=== PATIENT | female | born 2000 | race Caucasian/White ===

== ENCOUNTER 2021-11-10 00:49 | Inpatient (IN) ==
[2021-11-10] MEDS ORDERED: BUTORPHANOL 2 MG/ML VIAL IV PRN (01:17)
[2021-11-10] MEDS ORDERED: MEPERIDINE 50 MG/1 ML VIAL IV PRN ×2 (01:17→01:24)
[2021-11-10] MEDS ORDERED: ONDANSETRON 4 MG/2 ML VIAL IV PRN ×2 (01:17→16:30)
[2021-11-10] MEDS ORDERED: LACTATED RINGERS 500 ML IV PRN (01:17)
[2021-11-10] MEDS ORDERED: diphenhydrAMINE 50 MG/1 ML VIAL IV PRN ×2 (01:21)
[2021-11-10] MEDS ORDERED: ePHEDrine 50 MG/ML VIAL IV PRN (01:21)
[2021-11-10] MEDS ORDERED: hydrOXYzine HCL 25 MG/1 ML VIAL IM PRN (01:21)
[2021-11-10] MEDS ORDERED: NALOXONE 0.4 MG/ML VIAL IV PRN (01:21)
[2021-11-10] MEDS ORDERED: FAMOTIDINE 20 MG/2 ML VIAL IV ONE (01:21)
[2021-11-10] MEDS ORDERED: ONDANSETRON 4 MG/2 ML VIAL IV ONE (01:21)
[2021-11-10] MEDS ORDERED: PROMETHAZINE 25 MG/1 ML VIAL IM ONE (01:21)
[2021-11-10] MEDS ORDERED: CITRIC ACID/SODIUM CITRATE 30 ML UDCUP PO ONE (01:21)
[2021-11-10] MEDS ORDERED: OXYTOCIN/LR 20 UNIT/1,000 ML BAG IV SCH ×2 (01:30→04:00)
[2021-11-10 01:48] LABS: Basophils # 0.1 10*3/uL (0.0-0.2); Basophils % 0.4 % (0.0-0.8); Eosinophils # 0.3 10*3/uL (0.0-0.87); Eosinophils % 2.2 % (0.00-10.9); Hematocrit 31.4 VOL% (35.7-47.0); Hemoglobin 10.1 GM/DL (12.0-16.0); Immature Granulocytes % 0.9 %; Immature Granulocytes Absolute 0.13 #; Lymphocytes # 3.7 10*3/uL (1.4-4.0); Lymphocytes % 25.9 % (21.3-54.2); Mean Corpuscular HGB Conc 32.2 GM/DL (32-36); Mean Corpuscular Volume 85.1 FL (87-102); Mean Platelet Volume 10.3 FL (9.6-12.0); Monocytes % 7.4 % (1.7-12.7); Neutrophils % 63.2 % (38.7-73.9); Platelet Count 251 T/CUMM (130-400); Red Blood Count 3.69 MC/CUMM (3.8-5.5); Red Cell Distribution Width 13.9 % (9.3-17.3); White Blood Count 14.4 T/CUMM (4-12)
[2021-11-10] MEDS: CLINDAMYCIN INJ 900 MG/50 ML PREMIX IV SCH ×2 (01:57→09:26)
[2021-11-10 02:11] LABS: Albumin 2.2 G/DL (3.4-5.0); Bilirubin,Total 0.4 MG/DL (0.20-1.00); Calcium 8.7 MG/DL (8.5-10.1); Osmolality,Calculated 271.7 MOS/KG (273-304); Potassium 3.5 MMOL/L (3.5-5.1)
[2021-11-10] MEDS: LACTATED RINGERS 1,000 ML IV SCH ×3 (02:27→07:03)
[2021-11-10] MEDS: fentaNYL 2 MCG/ROPIV 0.2% EPID 100 ML EPIDURAL SCH ×2 (02:37→08:33)
[2021-11-10 02:41] LABS: Anisocytosis 1+; Band Neutrophils 4 % (0-10); Eosinophils 4 % (0-10); Lymphocytes 23 % (20-55); Platelet Estimate Normal; Segmented Neutrophils 63 % (50-85); Total Cells Counted 100
[2021-11-10 04:25] LABS: Mucus,Urine Occasional /LPF (Occasional); RBC,Urine 3 /HPF (0-4)
[2021-11-10 04:26] LABS: Bilirubin,Urine Negative (Negative); Blood, Urine Trace mg/dL (Negative); Glucose,Urine (UA) Negative (Negative); Ketones,Urine Trace mg/dL (Negative); Nitrite,Urine Negative (Negative); Protein,Urine 100 mg/dL (Negative); Urine Appearance Clear (Clear); Urine Color Yellow (Yellow); Urine Specific Gravity > 1.030 (1.001-1.035); Urine Urobilinogen 0.2 eU/dL (<2.0)
[2021-11-10] MEDS ORDERED: miSOPROStoL 200 MCG TABLET ONE (07:22)
[2021-11-10] MEDS ORDERED: CARBOPROST TROMETHAMINE 250 MCG/ML AMP IM ONE (07:23)
[2021-11-10] MEDS ORDERED: METHYLERGONOVINE 0.2 MG/1 ML AMP ONE (07:23)
[2021-11-10] MEDS ORDERED: LIDOCAINE 1% 50 ML VIAL ONE (08:31)
[2021-11-10 12:24] LABS: Cord Venous Blood HCO3 20.7 MMOL/L; Cord Venous Blood PCO2 43.6 MMHG; Cord Venous Blood PO2 26.7
[2021-11-10] MEDS ORDERED: IBUPROFEN 800 MG TABLET PO ONE (14:00)
[2021-11-10] MEDS ORDERED: OXYTOCIN/LR 20 UNIT/1,000 ML BAG IV ONE ×2 (16:01→16:30)
[2021-11-10] MEDS ORDERED: oxyCODONE/ACETAMINOPHEN 5-325 MG TABLET PO PRN (16:30)
[2021-11-10] MEDS ORDERED: BENZOCAINE 20%/MENTHOL 0.5% SPRAY 56 GM CAN TOP PRN (16:30)
[2021-11-10] MEDS ORDERED: ACETAMINOPHEN 325 MG TABLET PO PRN (16:30)
[2021-11-10] MEDS ORDERED: RHO(D) IMMUNE GLOBULIN 300 MCG SYRINGE IM ONE (16:30)
[2021-11-10] MEDS ORDERED: HYDROCORTISONE 2.5% RECTAL CREAM 30 GM TUBE TOP PRN (16:30)
[2021-11-10] MEDS ORDERED: LANOLIN 50% CREAM 0.3 OZ TUBE TOP PRN (16:30)
[2021-11-10] MEDS ORDERED: BISACODYL 10 MG SUPP RECTAL PRN (16:30)
[2021-11-10] MEDS ORDERED: WITCH HAZEL PADS 100/JAR TOP PRN (16:30)
[2021-11-10] MEDS ORDERED: IBUPROFEN 800 MG TABLET PO PRN (16:30)
[2021-11-10] MEDS ORDERED: MEASLES/MUMPS/RUBELLA VACCINE 0.5 ML VIAL SUBCUT ONE (16:30)
[2021-11-10] MEDS ORDERED: DIPH/TET/ACEL PERT BOOSTER VACCINE 0.5 ML VIAL IM ONE (16:30)
[2021-11-10] MEDS ORDERED: DOCUSATE SODIUM 100 MG CAPSULE PO SCH (21:00)
[2021-11-10] MEDS: DOCUSATE SODIUM 100 MG CAPSULE PO SCH (21:32)
[2021-11-10] MEDS: IBUPROFEN 800 MG TABLET PO PRN (21:40)
[2021-11-11 05:19] LABS: Basophils # 0.1 10*3/uL (0.0-0.2); Basophils % 0.7 % (0.0-0.8); Eosinophils # 0.1 10*3/uL (0.0-0.87); Eosinophils % 1.2 % (0.00-10.9); Hematocrit 29.3 VOL% (35.7-47.0); Hemoglobin 9.3 GM/DL (12.0-16.0); Immature Granulocytes % 0.8 %; Lymphocytes # 3.8 10*3/uL (1.4-4.0); Mean Corpuscular HGB Conc 31.7 GM/DL (32-36); Mean Corpuscular Volume 86.7 FL (87-102); Mean Platelet Volume 10.8 FL (9.6-12.0); Monocytes % 7.7 % (1.7-12.7); Neutrophils % 57.6 % (38.7-73.9); Platelet Count 233 T/CUMM (130-400); Red Blood Count 3.38 MC/CUMM (3.8-5.5); Red Cell Distribution Width 14.1 % (9.3-17.3); White Blood Count 11.9 T/CUMM (4-12)
[2021-11-11 05:51] LABS: Atypical Lymphocytes Few; Eosinophils 3 % (0-10); Lymphocytes 37 % (20-55); Segmented Neutrophils 53 % (50-85); Total Cells Counted 100
[2021-11-11 05:52] LABS: Hypochromia 1+; Microcytosis 1+; Platelet Estimate Normal
[2021-11-11] MEDS: IBUPROFEN 800 MG TABLET PO PRN ×2 (07:12→16:20)
[2021-11-11] MEDS: DOCUSATE SODIUM 100 MG CAPSULE PO SCH ×2 (08:36→20:42)
[2021-11-11] MEDS: oxyCODONE/ACETAMINOPHEN 5-325 MG TABLET PO PRN (20:43)
[2021-11-12] MEDS: IBUPROFEN 800 MG TABLET PO PRN (01:55)
[2021-11-12] MEDS: oxyCODONE/ACETAMINOPHEN 5-325 MG TABLET PO PRN (03:08)
[2021-11-12] MEDS: DOCUSATE SODIUM 100 MG CAPSULE PO SCH (08:59)
[2021-11-12 10:45] VITALS: BP 115/80
== END 2021-11-12 12:54 | disposition home or self-care (01) | DRG 807 ==
LOC: N.LD 00:49 → N.OB 15:15
PROVIDERS: ADMIT Specialist; ATTEND Specialist